=== PATIENT | male | born 1985 | race Two or more races ===

== ENCOUNTER 2017-10-14 17:57 | Emergency (ER) | payer SELFPAY ==
[~2017-10-14] VITALS: Ht 167.6 cm; Wt 63.5 kg
[2017-10-14 18:14] VITALS: BP 122/81
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
[2017-10-14] MEDS ORDERED: Tetanus/Diptheria/Pertussis Vaccine 0.5ml Syr IM ONE (18:45)
[2017-10-14] MEDS ORDERED: Bacitracin Oint UD TOPIC ONE (18:45)
--- NOTE | 2017-10-14 19:25 | Diagnostic Imaging Report ---
EXAM: CT Head Without Intravenous Contrast CLINICAL HISTORY: PAIN TECHNIQUE: Axial computed tomography images of the head/brain without intravenous contrast. CTDI is 70.38 mGy and DLP is 1449 mGy-cm One or more of the following dose reduction techniques were used: automated exposure control, adjustment of the mA and/or kV according to patient size, use of iterative reconstruction technique. COMPARISON: No relevant prior studies available. FINDINGS: Brain: No intracranial hemorrhage or mass effect. Ventricles: Unremarkable. No ventriculomegaly. Bones/joints: Mild plagiocephaly. No acute fracture. Soft tissues: Occipital scalp contusion. Sinuses: Unremarkable as visualized. No acute sinusitis. Mastoid air cells: Unremarkable as visualized. No mastoid effusion. IMPRESSION: No acute brain or skull injury
[2017-10-14] MEDS ORDERED: Norco 5mg/325mg tab ORAL ONE (19:30)
[2017-10-14] MEDS ORDERED: CEPHALEXIN500 MG ORAL (20:06)
[2017-10-14] MEDS ORDERED: BACITRACIN-P28.35 GM TP (20:06)
[2017-10-14] MEDS ORDERED: TYLENOL EXTRA500 MG ORAL (20:06)
[2017-10-14 20:30] VITALS: BP 122/81
== END 2017-10-14 20:30 | disposition home or self-care (01) ==
LOC: EMR 18:33
DX: S01.01XA Laceration without foreign body of scalp, initial encounter (principal); Y08.02XA Assault by strike by baseball bat, initial encounter; Y92.9 Unspecified place or not applicable; Z23 Encounter for immunization
CPT/HCPCS: 70450; 90471; 90715; 99284

== ENCOUNTER 2017-10-24 12:20 | Emergency (ER) | payer SELFPAY ==
[~2017-10-24] VITALS: Ht 162.6 cm; Wt 68.0 kg
[~2017-10-24 12:20] MED LIST: BACITRACIN-P28.35 GM TP; CEPHALEXIN500 MG ORAL; TYLENOL EXTRA500 MG ORAL
[2017-10-24 12:24] VITALS: BP 96/61
[2017-10-24] MEDS ORDERED: ANTIBIOTIC28.4 GM TP (12:31)
--- NOTE | 2017-10-24 14:48 | Emergency Room Report ---
History of Present Illness General Chief Complaint: Wound Recheck/Suture Removal Source: Patient Present Illness HPI The patient is a 32-year-old male presenting for staple removal. He was seen in this emergency Department 10 days prior for scalp laceration. 4 joyce were placed without complication. He denies any symptoms including pain, bleeding, rash, fever Allergies: Coded Allergies: No Known Allergies (Unverified , 10/14/17) Patient History Past Medical History: see triage record Pertinent Family History: none Reviewed Nursing Documentation: PMH: Agreed; PSxH: Agreed Nursing Documentation-PMH Past Medical History: No Stated History Review of Systems All Other Systems: negative except mentioned in HPI Physical Exam Vital Signs Date Time Temp Pulse Resp B/P (MAP) Pulse Ox O2 Delivery O2 Flow Rate FiO2 10/24/17 12:24 98.4 62 18 96/61 95 Room Air 98.4 Sp02 EP Interpretation: reviewed, normal General Appearance: no apparent distress, alert, GCS 15, non-toxic Head: normocephalic, atraumatic Eyes: bilateral eye normal inspection, bilateral eye PERRL Neurologic: alert, oriented x3, responsive, motor strength/tone normal, sensory intact, speech normal Psychiatric: judgement/insight normal, memory normal, mood/affect normal, no suicidal/homicidal ideation Skin: other - scalp laceration healing well with [address] Medical Decision Making PA Attestation Dr. French is my supervising physician. Patient management was discussed with my supervising physician Diagnostic Impression: Primary Impression: Removal of joyce Additional Impression: Encounter for wound re-check ER Course The patient is a 32-year-old male presenting for staple removal. Differential diagnosis considered: Wound infection, nonhealing wound, cellulitis , abscess PE: posterior scalp has [address] without signs of infection. No erythema. No bleeding. No DC Staple removal: 4 joyce were removed without complication. No bleeding or discharge. Wound is well approximated. No surrounding erythema. Last Vital Signs Date Time Temp Pulse Resp B/P (MAP) Pulse Ox O2 Delivery O2 Flow Rate FiO2 10/24/17 12:37 98.3 65 16 99/71 96 Room Air 98.4 Status: improved Disposition: HOME, SELF-CARE Condition: Improved Scripts Bacitracin Zinc (ANTIBIOTIC) 28.4 Gm Oint...g. 28.4 GM TP TID, #28 GM Prov: JONATHON LANCASTER 10/24/17 Referrals: NOT CHOSEN IPA/MD,REFERRING (PCP) Patient Instructions: Wound Closure Removal, Wound Check Additional Instructions: I discussed my findings with the patient. All questions and concerns have been answered. Treatment and medication compliance have been addressed. I advised the patient that they need to follow up with PMD in 3-5 days. Return to ED if symptoms worsen, new symptoms arise, or if needed for any reason. Patient verbalized understanding of discharge instructions. JONATHON LANCASTER October 24, 2017 14:48
== END 2017-10-24 13:00 | disposition home or self-care (01) ==
LOC: EMR 12:46
DX: S01.01XD Laceration without foreign body of scalp, subsequent encounter (principal); X58.XXXD Exposure to other specified factors, subsequent encounter; Z48.02 Encounter for removal of sutures
CPT/HCPCS: 99283